=== PATIENT | female | born 1960 | race African-American/Black ===

== ENCOUNTER → 2016-11-15 | Outpatient (CLI) | payer OTHER ==
[~2016-11-15] MED LIST: ASACOL HD800 MG PO; ASACOL400 MG; ASACOL400 MG PO; BACLOFEN20 MG PO; DARVOCET-N 1001 TAB; DARVOCET-N 1001 TAB PO; DELZICOL400 MG PO; FLEXERIL; FLEXERIL PO; FLEXERIL10 MG PO; GABAPENTIN300 MG PO; HYDROCODON-ACE1 EAC7 PO; HYDROXYZINE HCL25 M1 DOB; MELOXICAM15 MG PO; OMEPRAZOLE20 M2 PO; PERCOCET5/325 PO; PHENERGAN PO; PHENERGAN12.5 M2 PR; PREDNISONE PO; PRILOSEC20 M1 PO; SKELAXIN PO; VICODIN 5/500 T1 TAB PO; XARELTO15 MG PO; ZITHROMAX PO
--- NOTE | ~2016-11-15 | CR97 ---
[facility] A Service of [facility] & [facility] RADIOLOGY TEXT RESULTS PATIENT: ALEXANDRO SU LOCATION: [facility] : 58 UNIT #: [id number] AGE: [address]: DAVE LEÓN APRN SEX: F ORDER DR: [id number] [facility] [address] [place], [place] [address] [id number] O MR#: [id number] [facility] #: [id number] NAME: ALEXANDRO SU : 1960 SEX: F STUDY DATE/TIME: 11/15/2016 11:40 UNIT: [facility] ROOM: STUDY DESCRIPTION: CR Esophagram Attending Physician: Dave León Aprn Referring Physician: Dave León Aprn Ordering Physician: Dave León Aprn Primary Care Physician: Lisa [facility] MEDICAL IMAGING REPORT This report is preliminary unless electronic signature is present EXAM Double contrast barium esophagram Ms. Su is a 56-year-old lady with a history of dysphagia with pills and with food and also feelings of esophageal spasms symptoms have been present for about 8 to 9 months. She did undergo esophageal dilatation recently. TECHNIQUE Patient was administered Gastrografin to exclude an esophageal leak following recent dilatation, in addition, she was given, bicarbonate crystals and thin and thick barium and multiple fluoroscopic images were obtained. FINDINGS This patient has an area of narrowing involving the distal esophagus, the patient is also noted to have a small to moderate hiatal hernia. The area of narrowing involving the distal esophagus is persistent although it does shows some improvement on some of the prone NAVARRO images. I think its appearance is most in keeping with an esophageal B ring rather than any type of malignant stricture but correlation with recent endoscopy findings is recommended. Patient did have some disordered esophageal motility with poor stripping of the esophagus. I do not see any evidence of contrast extravasation, she was administered a barium tablet and was noted to have obstruction of the tablet at the level of the area of narrowing within the esophagus. Total fluoroscopy time was 1.2 minutes and a total of 25 fluoroscopic images were obtained. IMPRESSION 1. This patient has a persistent area of narrowing involving the distal esophagus, at the apex of a small to moderate hiatal hernia. This persists on multiple images although there was some improvement on STS. [facility] A Service of [facility] RADIOLOGY TEXT RESULTS PATIENT: ALEXANDRO SU LOCATION: [facility] : 58 UNIT #: [id number] AGE: [address]: DAVE LEÓN APRN SEX: F ORDER DR: the prone NAVARRO images, this area also resulted in obstruction of the barium tablet, which remained caught at this level. I think its appearance is most in keeping with an esophageal B ring rather than any type of malignancy stricture but certainly correlation with recent endoscopic findings is recommended. 2. Small to moderate hiatal hernia. 3. No evidence of contrast extravasation following esophageal dilatation. Dictated by... Abbey Krishna M.D. THIS IS AN ELECTRONICALLY VERIFIED REPORT Abbey Krishna M.D. at 11/16/2016 4:03 PM MICHAEL/alison TD: 11/16/2016 10:43 JOB #: [id number] MEDICAL IMAGING REPORT Page 1 of 1 COPY
== END | disposition home or self-care (01) ==
LOC: CRAD 10:14
DX: R13.10 Dysphagia, unspecified (principal); K22.2 Esophageal obstruction; K44.9 Diaphragmatic hernia without obstruction or gangrene
CPT/HCPCS: 74220